=== PATIENT | female | born 1980 | race Caucasian/White ===

== ENCOUNTER 2017-03-01 08:01 | Emergency (ER) | payer OTHER ==
[~2017-03-01] VITALS: Ht 167.6 cm; Wt 99.8 kg
[2017-03-01 08:05] VITALS: BP 129/89
[2017-03-01] MEDS ORDERED: ALBU1.25 NEB (08:36)
[2017-03-01] MEDS ORDERED: ETON1VAG VG (08:36)
[2017-03-01] MEDS ORDERED: CETI10CA PO (08:36)
== END 2017-03-01 10:09 | disposition home or self-care (01) ==
LOC: ED 08:22
DX: T75.89XA Other specified effects of external causes, initial encounter (principal); X58.XXXA Exposure to other specified factors, initial encounter; Y93.89 Activity, other specified; Y92.89 Other specified places as the place of occurrence of the external cause; Y99.8 Other external cause status
CPT/HCPCS: 99282

== ENCOUNTER → 2019-09-22 | Outpatient (CLI) | payer OTHER ==
[~2019-09-22] MED LIST: ALBU1.25 NEB; CETI10CA PO; ETON1VAG VG
== END | disposition home or self-care (01) ==
LOC: CFH 07:37
PROVIDERS: ATTEND Nurse Practitioner Primary Care
DX: Z12.31 Encounter for screening mammogram for malignant neoplasm of breast (principal)
CPT/HCPCS: 77067

== ENCOUNTER → 2021-01-11 | Outpatient (CLI) | payer OTHER | END | disposition home or self-care (01) | LOC: CFH 07:05 | PROVIDERS: ATTEND Nurse Practitioner Women's Health | DX: Z12.31 Encounter for screening mammogram for malignant neoplasm of breast (principal) | CPT/HCPCS: 77063; 77067 ==